=== PATIENT | female | born 1950 | race Caucasian/White ===

== ENCOUNTER 2016-05-19 11:55 | Outpatient (CLI) | payer OTHER ==
--- NOTE | 2016-05-19 12:31 | DIAGNOSTIC IMAGING REPORT ---
PROCEDURE: XR HAND 3 OR 4 VIEWS BILATERAL INDICATION: BILATERAL HAND PAIN TECHNIQUE: Four views of each hand. COMPARISON: None. FINDINGS: RIGHT HAND: Osseous structures and joint spaces are normal. LEFT HAND: Osseous structures and joint spaces are normal. IMPRESSION: 1. Normal bilateral hands.
== END 2016-05-19 23:00 ==
LOC: XR SRH 11:55
DX: M79.641 Pain in right hand (principal); M79.642 Pain in left hand